=== PATIENT | female | born 1970 | race Hispanic/Latino ===

== ENCOUNTER 2019-09-28 12:10 | Emergency (ER) | payer OTHER ==
[~2019-09-28] VITALS: Ht 162.6 cm; Wt 54.4 kg
[2019-09-28] MEDS ORDERED: SODIUM CHLORIDE 0.9% 1000ML 1,000 ML IV STA (12:45)
[2019-09-28] MEDS ORDERED: GADOBENATE DIMEGLUMINE 1 ML IV ONE (13:03)
[2019-09-28 13:22] LABS: BASOPHILS # (AUTO) 0.1 (0.0-0.1); BASOPHILS % 0.7 % (0.0-1.0); EOSINOPHILS # (AUTO) 0.1 (0.0-0.4); EOSINOPHILS % 1.4 % (0.0-6.0); HEMATOCRIT 42.3 % (34.2-44.1); HEMOGLOBIN 14.3 g/dL (12.0-16.0); LYMPHOCYTES # (AUTO) 1.5 (1.0-3.2); LYMPHOCYTES % 20.6 % (18.0-39.1); MEAN CORPUSCULAR HEMOGLOBIN 30.1 pg (28-32); MEAN CORPUSCULAR HGB CONC 33.8 g/dL (31-35); MEAN CORPUSCULAR VOLUME 89.1 fL (81-99); MONOCYTES # (AUTO) 0.3 (0.2-0.8); MONOCYTES % 3.9 % (4.4-11.3); NEUTROPHILS # (AUTO) 5.2 (2.1-6.9); PLATELET COUNT 295 x10e3/uL (140-360); RED BLOOD COUNT 4.75 x10e6/uL (3.6-5.1); RED CELL DISTRIBUTION WIDTH 13.6 % (11.7-14.4)
[2019-09-28 13:35] LABS: INR 0.9; PROTHROMBIN TIME 12.6 seconds (11.9-14.5)
[2019-09-28 13:36] LABS: PARTIAL THROMBOPLASTIN TIME 33.2 seconds (23.8-35.5)
[2019-09-28 13:46] LABS: ALANINE AMINOTRANSFERASE 17 IU/L (0-55); ALBUMIN 4.1 g/dL (3.5-5.0); ALBUMIN/GLOBULIN RATIO 1.2 (0.8-2.0); ALKALINE PHOSPHATASE 52 IU/L (40-150); ANION GAP 15.2 mmol/L (8-16); BLOOD UREA NITROGEN 11 mg/dL (7-26); BUN/CREATININE RATIO 14 (6-25); CALCIUM 9.4 mg/dL (8.4-10.2); CARBON DIOXIDE 23 mmol/L (22-29); CHLORIDE 99 mmol/L (98-107); CREATINE KINASE 122 IU/L (29-168); CREATININE, SERUM 0.77 mg/dL (0.57-1.11); EST GLOMERULAR FILTRATION RATE > 60 ML/MIN (60-); GLUCOSE 101 mg/dL (74-118); MAGNESIUM 1.9 MG/DL (1.3-2.1); POTASSIUM 3.2 mmol/L (3.5-5.1); SODIUM 134 mmol/L (136-145)
--- NOTE | 2019-09-28 14:11 | Diagnostic Imaging Report ---
CT BRAIN WO HISTORY: Bilateral leg weakness, headache COMPARISON: None. TECHNIQUE: Noncontrast axial scans were obtained from skull base to the vertex. Coronal and sagittal reconstructions obtained from the axial data. One or more of the following dose reduction techniques were used: Automated exposure control, adjustment of the mA and/or kV according to patient size, and/or utilization of iterative reconstruction technique. DISCUSSION: Scalp/Skull: Unremarkable. Brain sulci: Appropriate for patient's age. Ventricles: Normal in size and configuration. No hydrocephalus. Extra-axial spaces: Nonspecific focal curvilinear hyperdensity is seen in the anterior interhemispheric fissure; there is no significant mass effect. Otherwise, no masses or fluid collections. Parenchyma: No other abnormal densities. No mass, hemorrhage, or large vascular territory acute infarct. Dural sinuses: No abnormal densities. Sellar/Suprasellar region: Intact. Skull base: Intact. Incidental findings: Minimal scattered paranasal sinus mucosal thickening is partially imaged. IMPRESSION: 1. Nonspecific curvilinear hyperdensity in the anterior interhemispheric fissure could be due to a thrombosed vessel (superficial cortical vein or anterior cerebral artery?) or trace subarachnoid hemorrhage. 2. No other intracranial abnormalities. Further evaluation with intracranial CTA is recommended. Findings discussed with Dr. Mehta at 2:06 PM on 09/28/2019 (by Dr. Gary). Signed by: Dr. Garfield Gary M.D. on 09/28/2019 2:07 PM
[2019-09-28 15:08] LABS: CLARITY,URINE SL CLOUDY (CLEAR); COLOR,URINE YELLOW (YELLOW); LEUKOCYTE ESTERASE ,URINE NEGATIVE (NEGATIVE)
[2019-09-28 15:09] LABS: BILIRUBIN,URINE NEGATIVE (NEGATIVE); KETONES,URINE 1+ (NEGATIVE); NITRITE,URINE NEGATIVE (NEGATIVE); PROTEIN,URINE DIPSTICK NEGATIVE (NEGATIVE); URINE UROBILINOGEN 0.2 mg/dL (0.2 - 1)
[2019-09-28 15:11] LABS: PREGNANCY TEST, URINE NEGATIVE (NEGATIVE)
--- NOTE | 2019-09-28 15:19 | Diagnostic Imaging Report ---
Chest, 1 view, 09/28/2019. History: Weakness. Comparison: None available. Findings: The cardiomediastinal silhouette and pulmonary vasculature are within normal limits for a portable exam. There is no focal consolidation or pleural effusion. There are no acute osseous or soft tissue abnormalities. Impression: No acute cardiopulmonary abnormality. Signed by: Yvan Clark on 09/28/2019 3:15 PM
[2019-09-28 15:21] LABS: BACTERIA,URINE RARE /HPF; EPITHELIAL CELLS,URINE RARE /LPF
--- NOTE | 2019-09-28 15:21 | Diagnostic Imaging Report ---
CTA BRAIN HISTORY: Leg weakness, headache COMPARISON: Head CT 09/28/2019 TECHNIQUE: CTA of the head was performed with intravenous iodine based contrast. Coronal, sagittal, and 3-D reformations were created. One or more of the following dose reduction techniques were used: Automated exposure control, adjustment of the mA and/or kV according to patient size, and/or utilization of iterative reconstruction technique. DISCUSSION: Carotid arteries: The intracranial internal carotid arteries are patent and without abnormality. No abnormalities in the A1 or M1 segments. There is long segment stenosis of the A2 segment of the right anterior cerebral artery with abrupt cut off at the A3 segment; there is suspected reconstitution of the A4 segment. The left anterior cerebral artery is otherwise grossly patent. Vertebrobasilar Circulation: Right vertebral artery: Patent, no abnormalities. Left vertebral artery: Patent, no abnormalities. Basilar artery: Patent, no abnormalities. Posterior cerebral arteries: Patent, no abnormalities. Normal Variants: ACom: Patent. PComs: Patent on the left. Not clearly visualized on the right. Vertebral arteries: Right dominant The major dural venous sinuses are grossly patent. Additional findings: Mild scattered paranasal sinus mucosal thickening is present IMPRESSION: 1. Abrupt cut off of the right anterior cerebral artery A3 segment with reconstitution at the A4 segment. This could be due to focal thrombosis, or vasoconstriction. Differential considerations include nonspecific vasculopathy, reversible cerebral vasoconstriction syndrome, or embolic disease in the appropriate clinical setting. 2. No other intracranial CTA abnormalities. Findings discussed with Dr. Mehta at 3:14 PM on 09/28/2019 (by Dr. Gary). Signed by: Dr. Garfield Gary M.D. on 09/28/2019 3:17 PM
--- NOTE | 2019-09-28 15:29 | Diagnostic Imaging Report ---
MRI BRAIN WOW HISTORY: Leg weakness, headache COMPARISON: Head CT and CTA 09/28/2019 TECHNIQUE: Multiplanar, multisequence MRI of the brain (including diffusion-weighted imaging) was performed before and after the administration of intravenous, gadolinium based contrast. 10 mL of MultiHance were administered. A total of 8 image series were submitted. DISCUSSION: Scalp/bone marrow: Unremarkable. Brain sulci: Appropriate for patient's age. Ventricles: Normal in size and configuration. No hydrocephalus. Extra-axial spaces: No masses or fluid collections. Parenchyma: Mild focal cortical diffusion restriction is seen along the right cingulate gyrus. This is compatible with acute ischemia/cytotoxic edema. No other diffusion restricting abnormalities are seen. A few small T2/FLAIR hyperintense foci throughout the supratentorial white matter are likely chronic microvascular ischemic changes. Otherwise, no mass or hemorrhage is seen. No abnormal parenchymal, leptomeningeal, or dural enhancement is seen. Vessels: Subtle T2/FLAIR hyperintensity along the right anterior cerebral artery A2 and A3 segments may be due to sluggish flow and/or thrombosis. Otherwise, unremarkable. Sellar/Suprasellar region: No abnormalities. Craniocervical junction: No abnormalities. Incidental findings: Mild scattered paranasal sinus mucosal thickening is present. IMPRESSION: 1. Subtle T2/FLAIR hyperintensity in the right anterior cerebral artery A2 and A3 segments may be due to sluggish flow and/or thrombosis. 2. Mild focal cortical acute ischemia in the right cingulate gyrus. 3. No other acute intracranial abnormalities. 4. Minimal supratentorial chronic microvascular ischemic changes. Findings discussed with Dr. Mehta at 3:14 PM on 09/28/2019 (by Dr. Gary). Signed by: Dr. Garfield Gary M.D. on 09/28/2019 3:26 PM
[2019-09-28] MEDS ORDERED: SODIUM CHLORIDE 0.9% 1000ML 1,000 ML ONE (15:47)
[2019-09-28] MEDS ORDERED: ASPIRIN 325 MG TAB PO ONE (16:30)
--- NOTE | 2019-09-28 16:33 | NUR ---
[facility] [address] [facility].
--- NOTE | 2019-09-28 17:03 | NUR ---
Report to LESTER Byrne at [facility] [phone]. pt is going to room 947.
[2019-09-28] MEDS ORDERED: SODIUM CHLORIDE 0.9% 50ML 50 ML ONE (18:19)
[2019-09-28] MEDS ORDERED: IOPAMIDOL 370 MG/ML 200 ML INFUS..BTL INJ ONE (18:19)
--- OUTSIDE RECORDS SUMMARY | 2019-09-30 13:56 | XMS REPORT ---
Author Author [facility] Address Unknown Phone Unavailable Care Team Providers Care Pipeline Maintenance Supervisor Name Role Phone AMATRISTAN KEN TOUSSAINT Unavailable Unavailable Kirsty STALLWORTH Unavailable Unavailable Problems This patient has no known problems. Allergies, Adverse Reactions, Alerts This patient has no known allergies or adverse reactions. Medications This patient has no known medications. Results Test Description Test Time Test Comments Text Results Atomic Results Result Comments SCREEN, URINE 2019-09-30 10:28:00 TEST URINE (BEAKER) (test vhda=567) Negative ANTI-NUCLEAR ANTIBODY (RIMMA)2019-09-30 10:25:00* Test Item Value Reference Range Comments ANTI-NUCLEAR ANTIBODY (RIMMA) (BEAKER) (test ewrc=258) Positive Negative Test performed by IFA method.RIMMA TITER AND [id number] 10:25:00* Test Item Value Reference Range Comments RIMMA TITER (BEAKER) (test hcor=8193) >=:2560 RIMMA PATTERN (BEAKER) (test thih=8222) Speckled HEMOGLOBIN [id number] 09:05:00* Test Item Value Reference Range Comments HEMOGLOBIN A1C (BEAKER) (test gfkg=826) 4.9 % 4.3-6.1 BASIC METABOLIC [id number] 06:30:00* Test Item Value Reference Range Comments SODIUM (BEAKER) (test pufm=547) 136 meq/L 136-145 POTASSIUM (BEAKER) (test rulr=067) 3.4 meq/L 3.5-5.1 CHLORIDE (BEAKER) (test gzie=725) 106 meq/L 98-107 CO2 (BEAKER) (test kabj=354) 22 meq/L 22-29 BLOOD UREA NITROGEN (BEAKER) (test gbrd=121) 10 mg/dL 7-21 CREATININE (BEAKER) (test frth=308) 0.64 mg/dL 0.57-1.25 GLUCOSE RANDOM (BEAKER) (test fzrq=935) 114 mg/dL 70-105 CALCIUM (BEAKER) (test ztih=084) 8.6 mg/dL 8.4-10.2 EGFR (BEAKER) (test ubxm=9525) INSUFFICIENT CLINICAL DATA TO CALCULATE ESTIMATED GFR. [id number] 06:25:00* Test Item Value Reference Range Comments MAGNESIUM (BEAKER) (test brti=960) 1.9 mg/dL 1.6-2.6 MR, BRAIN, [id number] 22:37:00FINAL REPORT EXAM: MR, BRAIN, WITH \T\ WITHOUT CONTRAST CLINICAL INDICATION: Leg weakness. TECHNIQUE: Pre-contrast sagittal and axial T1-w, and axial T2-FLAIR, GRE, and diffusion-w sequences of the brain with ADC maps. Post-contrast axial fat- saturated T2-w and T1-w, and sagittal volumetric T1-w images of the brain with axial and coronal reformations. Intravenous contrast material was administered for the examination. COMPARISON: None. FINDINGS:Parenchyma: There is an acute infarction within the posterior parasagittal right frontal lobe of the right JILLIAN territory with associated mild increased T2/FLAIR signal. No hemorrhage. No mass or significant mass effect. Incidental small developmental venous anomaly in the posterior right frontal lobe. Abnormal Enhancement: None Extra-axial Collection: None Ventricular System: Normal Major Intracranial Flow Voids: Normal Osseous Structures: Expected marrow signal. 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 No hemorrhage. The findings were discussed with the patient's nurse on 09/29/2019 10:34 PM at the time of dictation who will relay them to the physician. Signed: Dorothea Booker MDReport Verified Date/Time: 09/29/2019 22:37:35 ALYSIS WITH MICROSCOPIC IF INDICATED 2019-09-29 22:14:00* Test Item Value Reference Range Comments COLOR (BEAKER) (test zvpr=632) Yellow CLARITY (BEAKER) (test pucd=675) Clear SPECIFIC GRAVITY UA (BEAKER) (test mrsz=276) 1.024 1.001-1.035 PH UA (BEAKER) (test lkhn=786) 5.5 5.0-8.0 PROTEIN UA (BEAKER) (test qnko=819) Negative Negative GLUCOSE UA (BEAKER) (test jwef=567) 70 mg/dL Negative KETONES UA (BEAKER) (test axoc=342) 20 mg/dL Negative BILIRUBIN UA (BEAKER) (test iaot=854) Negative Negative BLOOD UA (BEAKER) (test ookt=056) Negative Negative NITRITE UA (BEAKER) (test ebhc=611) Negative Negative LEUKOCYTE ESTERASE UA (BEAKER) (test kwgq=045) Negative Negative UROBILINOGEN UA (BEAKER) (test jtwk=864) 0.2 mg/dL 0.2-1.0 SOURCE(BEAKER) (test riaj=0589) RHEUMATOID FACTOR AB, REFLEX TO [id number] 10:31:00* Test Item Value Reference Range Comments RHEUMATOID FACTOR (BEAKER) (test vbtb=311) Negative VITAMIN [id number] 08:21:00* Test Item Value Reference Range Comments VITAMIN B12 (BEAKER) (test amjt=599) > pg/mL 213-816 T4, [id number] 08:18:00* Test Item Value Reference Range Comments FREE T4 (BEAKER) (test mkqa=404) 0.98 ng/dL 0.70-1.48 C-REACTIVE [id number] 07:30:00* Test Item Value Reference Range Comments C-REACTIVE PROTEIN (BEAKER) (test cdcu=769) 0.13 mg/dL 0.00-0.50 TSH/FREE T4 IF [id number] 07:29:00* Test Item Value Reference Range Comments THYROID STIMULATING HORMONE (BEAKER) (test nhdz=535) 5.91 uIU/mL 0.35-4.94 HEPATITIS PANEL, [id number] 07:01:00* Test Item Value Reference Range Comments HEPATITIS A IGM ANTIBODY (BEAKER) (test kpfy=003) Nonreactive Nonreactive HEPATITIS B CORE IGM ANTIBODY (BEAKER) (test wouo=632) Nonreactive Nonreactive HEPATITIS C ANTIBODY (BEAKER) (test klsv=165) Nonreactive Nonreactive HEPATITIS B SURFACE ANTIGEN (2) (BEAKER) (test mnsh=9081) Nonreactive Nonreactive BASIC METABOLIC [id number] 06:50:00* Test Item Value Reference Range Comments SODIUM (BEAKER) (test huxc=957) 137 meq/L 136-145 POTASSIUM (BEAKER) (test oflg=431) 3.5 meq/L 3.5-5.1 CHLORIDE (BEAKER) (test veoy=084) 107 meq/L 98-107 CO2 (BEAKER) (test vaqh=354) 25 meq/L 22-29 BLOOD UREA NITROGEN (BEAKER) (test lvou=519) 8 mg/dL 7-21 CREATININE (BEAKER) (test jznb=626) 0.74 mg/dL 0.57-1.25 GLUCOSE RANDOM (BEAKER) (test xnns=924) 98 mg/dL 70-105 CALCIUM (BEAKER) (test yokd=875) 8.7 mg/dL 8.4-10.2 EGFR (BEAKER) (test hvjy=3486) INSUFFICIENT CLINICAL DATA TO CALCULATE ESTIMATED GFR. [id number] 06:40:00* Test Item Value Reference Range Comments MAGNESIUM (BEAKER) (test duah=401) 2.0 mg/dL 1.6-2.6 LIPID [id number] 06:40:00* Test Item Value Reference Range Comments TRIGLYCERIDES (BEAKER) (test clhq=700) 85 mg/dL CHOLESTEROL (BEAKER) (test vwcz=997) 179 mg/dL HDL CHOLESTEROL (BEAKER) (test zlak=870) 54 mg/dL LDL CHOLESTEROL CALCULATED (BEAKER) (test fvhd=537) 108 mg/dL Triglyceride Reference Range: Low Risk <150 Borderline 150-199 High Risk 200-499 Very High Risk >=500Cholesterol Reference Range: Low Risk <200 Borderline 200-239 High Risk >240HDL Cholesterol Reference Range: Low Risk >=60 High Risk <40LDL Cholesterol Reference Range: Optimal <100 Near Optimal 100-129 Borderline 130-159 High 160-189 Very High >=190 HEPATIC FUNCTION [id number] 06:40:00* Test Item Value Reference Range Comments TOTAL PROTEIN (BEAKER) (test lnod=252) 6.8 gm/dL 6.0-8.3 ALBUMIN (BEAKER) (test hagn=5488) 3.9 g/dL 3.5-5.0 BILIRUBIN TOTAL (BEAKER) (test gjlb=751) 0.7 mg/dL 0.2-1.2 BILIRUBIN DIRECT (BEAKER) (test yzzs=927) 0.3 mg/dL 0.1-0.5 ALKALINE PHOSPHATASE (BEAKER) (test vllg=705) 42 U/L 40-150 AST (SGOT) (BEAKER) (test oicc=434) 21 U/L 5-34 ALT (SGPT) (BEAKER) (test psmm=720) 11 U/L 6-55 PT/[id number] 06:28:00* Test Item Value Reference Range Comments PROTIME (BEAKER) (test pwic=260) 14.7 seconds 11.9-14.2 INR (BEAKER) (test wshc=282) 1.2 <=5.9 PARTIAL THROMBOPLASTIN TIME (BEAKER) (test jfdg=192) 36.9 seconds 22.5-36.0 Effective 03/09/2019: PT Reference Range ChangeNew: 11.9-14.2 Previous: 11.7-14. 7RECOMMENDED COUMADIN/WARFARIN INR THERAPY RANGESSTANDARD DOSE: 2.0-3.0 Include s: PROPHYLAXIS for venous thrombosis, systemic embolization; TREATMENT for venou s thrombosis and/or pulmonary embolus.HIGH RISK: Target INR is 2.5-3.5 for patie nts wiht mechanical heart valves.PROTHROMBIN TIME/[id number] 06:27:00* Test Item Value Reference Range Comments PROTIME (BEAKER) (test ecsd=640) 14.7 seconds 11.9-14.2 INR (BEAKER) (test rmqm=893) 1.2 <=5.9 Effective 03/09/2019: PT Reference Range ChangeNew: 11.9-14.2 Previous: 11.7-14. 7RECOMMENDED COUMADIN/WARFARIN INR THERAPY RANGESSTANDARD DOSE: 2.0-3.0 Include s: PROPHYLAXIS for venous thrombosis, systemic embolization; TREATMENT for venou s thrombosis and/or pulmonary embolus.HIGH RISK: Target INR is 2.5-3.5 for patie nts wiht mechanical heart valves.CBC W/PLT COUNT & AUTO [id number] 06:20:00* Test Item Value Reference Range Comments WHITE BLOOD CELL COUNT (BEAKER) (test xkxs=223) 6.9 K/ L 3.5-10.5 RED BLOOD CELL COUNT (BEAKER) (test mkrf=651) 4.48 M/ L 3.93-5.22 HEMOGLOBIN (BEAKER) (test lfnz=602) 13.4 GM/DL 11.2-15.7 HEMATOCRIT (BEAKER) (test fzed=980) 39.9 % 34.1-44.9 MEAN CORPUSCULAR VOLUME (BEAKER) (test caaa=216) 89.1 fL 79.4-94.8 MEAN CORPUSCULAR HEMOGLOBIN (BEAKER) (test wmdp=167) 29.9 pg 25.6-32.2 MEAN CORPUSCULAR HEMOGLOBIN CONC (BEAKER) (test yzub=296) 33.6 GM/DL 32.2-35.5 RED CELL DISTRIBUTION WIDTH (BEAKER) (test gnny=493) 13.7 % 11.7-14.4 PLATELET COUNT (BEAKER) (test xksi=894) 311 K/CU MM 150-450 MEAN PLATELET VOLUME (BEAKER) (test sevb=258) 10.4 fL 9.4-12.3 NUCLEATED RED BLOOD CELLS (BEAKER) (test wdjj=492) 0 /100 WBC 0-0 NEUTROPHILS RELATIVE PERCENT (BEAKER) (test aoue=890) 74 % LYMPHOCYTES RELATIVE PERCENT (BEAKER) (test mnis=102) 20 % MONOCYTES RELATIVE PERCENT (BEAKER) (test dmdt=432) 5 % EOSINOPHILS RELATIVE PERCENT (BEAKER) (test avev=111) 1 % BASOPHILS RELATIVE PERCENT (BEAKER) (test widz=273) 1 % NEUTROPHILS ABSOLUTE COUNT (BEAKER) (test tuva=300) 5.05 K/ L 1.56-6.13 LYMPHOCYTES ABSOLUTE COUNT (BEAKER) (test jgfe=600) 1.34 K/ L 1.18-3.74 MONOCYTES ABSOLUTE COUNT (BEAKER) (test tnoa=041) 0.31 K/ L 0.24-0.36 EOSINOPHILS ABSOLUTE COUNT (BEAKER) (test iejy=304) 0.08 K/ L 0.04-0.36 BASOPHILS ABSOLUTE COUNT (BEAKER) (test zcvj=675) 0.07 K/ L 0.01-0.08 IMMATURE GRANULOCYTES-RELATIVE PERCENT (BEAKER) (test jzpw=7064) 0 % 0-1 MR, SPINE, CERVICAL, [id number] 05:33:00FINAL REPORT EXAM: MR, SPINE, THORACIC, WITH \T\ WITHOUT CONTRAST, MR, SPINE, CERVICAL, WITH \T\ WITHOUT CONTRAST CLINICAL INDICATION: Hyperreflexia within the upper and lower extremities. Findings concerning for spinal cord pathology. TECHNIQUE: Pre-contrast sagittal T1-, T2-, and T2-w fat-saturated images, and axial T1-w and T2-w images of the cervical and thoracic spine. Post-contrast axial T1-w and sagittal T1-w fat-saturated images. Intravenous contrast material was administered for the examination. COMPARISON: None. FINDINGS:CERVICAL SPINE: Alignment: Trace retrolisthesis of C4 on C5. Vertebral Bodies: Normal in height Marrow Signal: Expected Intervertebral Discs: Multilevel disc dessication without loss of disc space height Spinal Cord: Normal in signal intensity. Included Intracranial Structures: Normal Paraspinal Soft Tissues: Normal Individual Levels: C2-C3: No spinal canal or foraminal stenosis. C3-C4: No spinal canal or foraminal stenosis. C4-C5: Small disc osteophyte complex contact ing the ventral cord. No spinal canal or foraminal stenosis. C5-C6: Small disc o steophyte complex and mild bilateral facet arthropathy. No spinal canal or sara inal stenosis. C6-C7: Trace disc osteophyte complex and mild bilateral facet art hropathy. No spinal canal or foraminal stenosis. C7-T1: No spinal canal or sara inal stenosis. Abnormal Enhancement: None THORACIC SPINE: Alignment: Normal Alicia tebral Bodies: Normal in height Marrow Signal: Expected Intervertebral Discs: Mu ltilevel disc dessication without loss of disc space height Spinal cord: Normal Paraspinal Soft Tissues: Normal Individual Levels: No evidence of disc herniatio n, spinal canal stenosis, or neural foraminal narrowing. Abnormal Enhancement: N one IMPRESSION: No acute abnormality or significant stenosis of the cervicothora cic spine. Normal appearance of the spinal cord. Signed: Dorothea Bookereport V erified Date/Time: 09/29/2019 05:33:53 , SPINE, THORACIC, [id number] 05:33:00 FINAL REPORT EXAM: MR, SPINE, THORACIC, WITH \T\ WITHOUT CONTRAST, MR, SPINE, CERVICAL, WITH \T\ WITHOUT CONTRAST CLINICAL INDICATION: H yperreflexia within the upper and lower extremities. Findings concerning for spi nal cord pathology. TECHNIQUE: Pre-contrast sagittal T1-, T2-, and T2-w fat-satu rated images, and axial T1-w and T2-w images of the cervical and thoracic spine. Post-contrast axial T1-w and sagittal T1-w fat-saturated images. Intravenous c ontrast material was administered for the examination. COMPARISON: None. FINDIN GS:CERVICAL SPINE: Alignment: Trace retrolisthesis of C4 on C5. Vertebral Bodies : Normal in height Marrow Signal: Expected Intervertebral Discs: Multilevel disc dessication without loss of disc space height Spinal Cord: Normal in signal int ensity. Included Intracranial Structures: Normal Paraspinal Soft Tissues: Normal Individual Levels: C2-C3: No spinal canal or foraminal stenosis. C3-C4: No spinal canal or foraminal stenosis. C4-C5: Small disc osteophyte complex contact ing the ventral cord. No spinal canal or foraminal stenosis. C5-C6: Small disc o steophyte complex and mild bilateral facet arthropathy. No spinal canal or sara inal stenosis. C6-C7: Trace disc osteophyte complex and mild bilateral facet art hropathy. No spinal canal or foraminal stenosis. C7-T1: No spinal canal or sara inal stenosis. Abnormal Enhancement: None THORACIC SPINE: Alignment: Normal Alicia tebral Bodies: Normal in height Marrow Signal: Expected Intervertebral Discs: Mu ltilevel disc dessication without loss of disc space height Spinal cord: Normal Paraspinal Soft Tissues: Normal Individual Levels: No evidence of disc herniatio n, spinal canal stenosis, or neural foraminal narrowing. Abnormal Enhancement: N one IMPRESSION: No acute abnormality or significant stenosis of the cervicothora cic spine. Normal appearance of the spinal cord. Signed: Dorothea Booker MDReport V erified Date/Time: 09/29/2019 05:33:53 C METABOLIC [id number] 00:19:00* Test Item Value Reference Range Comments SODIUM (BEAKER) (test oves=507) 139 meq/L 136-145 POTASSIUM (BEAKER) (test xhxs=834) 3.3 meq/L 3.5-5.1 CHLORIDE (BEAKER) (test jzor=108) 108 meq/L 98-107 CO2 (BEAKER) (test geaw=662) 24 meq/L 22-29 BLOOD UREA NITROGEN (BEAKER) (test cgci=538) 8 mg/dL 7-21 CREATININE (BEAKER) (test hvbs=335) 0.79 mg/dL 0.57-1.25 GLUCOSE RANDOM (BEAKER) (test hcoz=553) 93 mg/dL 70-105 CALCIUM (BEAKER) (test qess=172) 8.0 mg/dL 8.4-10.2 EGFR (BEAKER) (test ujww=9102) INSUFFICIENT CLINICAL DATA TO CALCULATE ESTIMATED GFR. MRI BRAIN [id number] 15:18:00 [place] [address] Patient Name: GUS ROSADO I MR #: [id number] : 1970 Age/Sex: 49/F Req #: [id number] Adm Physician: Ordered by: SARAH STALLWORTH MD Report #: [id number] Location: ER Room/Bed: Procedure: [id number] MRI/MRI BRAIN WOW Exam Date: Exam Time: REPORT STATUS: Signed MRI BRAIN WOW H ISTORY: Leg weakness, headache COMPARISON: Head CT and CTA 09/28/2019 TECHNIQUE: Multiplanar, multisequence MRI of the brain (including diffusion-w eighted imaging) was performed before and after the administration of intraven ous, gadolinium based contrast. 10 mL of MultiHance were administered. A total of 8 image series were submitted. DISCUSSION: Scalp/bone marrow: Un remarkable. Brain sulci: Appropriate for patient's age. Ventricles: Normal in size and configuration. No hydrocephalus. Extra-axial spaces: No masses or fluid collections. Parenchyma: Mild focal cortical diffusion restriction is seen along the right cingulate gyrus. This is compatible with acute ischemi a/cytotoxic edema. No other diffusion restricting abnormalities are seen. A few small T2/FLAIR hyperintense foci throughout the supratentorial white ma tter are likely chronic microvascular ischemic changes. Otherwise, no mass or hemorrhage is seen. No abnormal parenchymal, leptomeningeal, or dural enhancem ent is seen. Vessels: Subtle T2/FLAIR hyperintensity along the right anteri or cerebral artery A2 and A3 segments may be due to sluggish flow and/or throm bosis. Otherwise, unremarkable. Sellar/Suprasellar region: No abnormalities . Craniocervical junction: No abnormalities. Incidental findings: Mild scatt ered paranasal sinus mucosal thickening is present. IMPRESSION: 1. Sub tle T2/FLAIR hyperintensity in the right anterior cerebral artery A2 and A3 se gments may be due to sluggish flow and/or thrombosis. 2. Mild focal cortical acute ischemia in the right cingulate gyrus. 3. No other acute intracranial a bnormalities. 4. Minimal supratentorial chronic microvascular ischemic change s. Findings discussed with Dr. Stallworth at 3:14 PM on 09/28/2019 (by Dr. Arora). Signed by: Dr. Garfield Gary M.D. on 09/28/2019 3:26 PM Di ctated By: GARFIELD GARY MD 1526 Transcribed By: YADIRA on 09/28/19 1526 COPY TO: SARAH MESSINA MD CHEST SINGLE (PORTABLE)2019-09-28 15:15:00 [place] [address] Patient Name: GUS ROSADO I MR #: [id number] : 1970 Age/Sex: 49/F Req #: [id number] Adm Physician: Ordered by: EDDIE GAITAN SPRAY DRY OPERATOR Report #: [id number] Location: ER Room/Bed: Procedure: [id number] DX /CHEST SINGLE (PORTABLE) Exam Date: 09/28/19 Exam Ti me: 1415 REPORT STATUS: Signed C hest, 1 view, 09/28/2019. History: Weakness. Comparison: None available. Findings: The cardiomediastinal silhouette and pulmonary vascula ture are within normal limits for a portable exam. There is no focal consolida tion or pleural effusion. There are no acute osseous or soft tissue abnormalit ies. Impression: No acute cardiopulmonary abnormality. Signed by: Eddie Clark on 09/28/2019 3:15 PM Dictated By: EDDIE CLARK MD Electr onically Signed By: EDDIE CLARK MD on 09/28/19 1518 Transcribed By: YADIRA cuello 09/28/19 1510 COPY TO: EDDIE GAITAN NP CTA [id number] 14:57:00 [place] [address] Patient Name: GUS ROSADO I MR #: [id number] : 1970 Age/Sex: 49/F Req #: [id number] Adm Physician: Ordered by: SARAH STALLWORTH MD Report #: [id number] Location: ER Room/Bed: Procedure: [id number] CT/CTA BRAIN Exam Date: 09/28/19 Exam Time: 1415 REPORT STATUS: Signed CTA BRAIN HISTORY: Leg weakness, headache COMPARISON: Head CT 09/28/2019 TECH NIQUE: CTA of the head was performed with intravenous iodine based contrast. Coronal, sagittal, and 3-D reformations were created. One or more of the foll owing dose reduction techniques were used: Automated exposure control, adjustm ent of the mA and/or kV according to patient size, and/or utilization of itera tive reconstruction technique. DISCUSSION: Carotid arteries: The i ntracranial internal carotid arteries are patent and without abnormality. No a bnormalities in the A1 or M1 segments. There is long segment stenosis of the A2 segment of the right anterior cerebral artery with abrupt cut off at the A3 segment; there is suspected reconstitution of the A4 segment. The left ante rior cerebral artery is otherwise grossly patent. Vertebrobasilar Circulati on: Right vertebral artery: Patent, no abnormalities. Left vertebral arter y: Patent, no abnormalities. Basilar artery: Patent, no abnormalities. Pos terior cerebral arteries: Patent, no abnormalities. Normal Variants: AC om: Patent. PComs: Patent on the left. Not clearly visualized on the right. Vertebral arteries: Right dominant The major dural venous sinuses are gross ly patent. Additional findings: Mild scattered paranasal sinus mucosal thic kening is present IMPRESSION: 1. Abrupt cut off of the right anterior cerebral artery A3 segment with reconstitution at the A4 segment. This could be due to focal thrombosis, or vasoconstriction. Differential considerations include nonspecific vasculopathy, reversible cerebral vasoconstriction syndrom e, or embolic disease in the appropriate clinical setting. 2. No other intr acranial CTA abnormalities. Findings discussed with Dr. Stallworth at 3:14 PM on 09/28/2019 (by Dr. Gary). Signed by: Dr. Garfield Gary M.D. on 09/28/2019 3:17 PM Dictated By: GARFIELD GARY MD Electronically Delfina d By: GARFIELD GARY MD on 09/28/19 1517 Transcribed By: YADIRA on 09/28/19 1517 COPY TO: SARAH STALLWORTH MD CT BRAIN [id number] 13:56:00 [place] [address] Patient Name: GUS ROSADO I MR #: [id number] : 1970 [facility] 49[id number] Req #: [id number] Adm Physician: Ordered by: EDDIE GAITAN NP Report #: [id number] Location: ER Room/Bed: Procedure: [id number] CT /CT BRAIN WO Exam Date: 09/28/19 Exam Time: 1320 REPORT STATUS: Signed CT BRAIN WO HISTORY: Bilateral leg weakness, headache COMPARISON: None. TECHN IQUE: Noncontrast axial scans were obtained from skull base to the vertex. C oronal and sagittal reconstructions obtained from the axial data. One or more of the following dose reduction techniques were used: Automated exposure cont rol, adjustment of the mA and/or kV according to patient size, and/or utilizat ion of iterative reconstruction technique. DISCUSSION: Scalp/Skull: Unremarkable. Brain sulci: Appropriate for patient's age. Ventricles: Normal in size and configuration. No hydrocephalus. Extra-axial spaces: Nonsp ecific focal curvilinear hyperdensity is seen in the anterior interhemispheric fissure; there is no significant mass effect. Otherwise, no masses or fluid collections. Parenchyma: No other abnormal densities. No mass, hemorrhage, or large vascular territory acute infarct. Dural sinuses: No a bnormal densities. Sellar/Suprasellar region: Intact. Skull base: Intact. Incidental findings: Minimal scattered paranasal sinus mucosal thickening is p artially imaged. IMPRESSION: 1. Nonspecific curvilinear hyperdensity in the anterior interhemispheric fissure could be due to a thrombosed vessel (sup erficial cortical vein or anterior cerebral artery?) or trace subarachnoid hem orrhage. 2. No other intracranial abnormalities. Further evaluation with intracranial CTA is recommended. Findings discussed with Dr. Stallworth at 2:06 PM on 09/28/2019 (by Dr. Gary). Signed by: Dr. Garfield Gary M.D. on 09/28/2019 2:07 PM Dictated By: GARFIELD GARY MD Electronically Delfina d By: GARFIELD GARY MD on 09/28/191406 Transcribed By: YADIRA on 09/28/191406 COPY TO: EDDIE GAITAN NP
== END 2019-09-28 17:35 | disposition other institution (70) ==
LOC: ER 12:10
DX: M62.81 Muscle weakness (generalized) (principal); R51 Headache; I10 Essential (primary) hypertension
CPT/HCPCS: 36415; 70450; 70496; 70553; 71045; 80053; 81001; 81025; 82550; 82553; 83735; 84484; 85025; 85610; 85730; 87086; 99284; A9577; J7030; Q9967